=== PATIENT | female | born 1955 | race Caucasian/White ===

== ENCOUNTER 2017-06-22 15:54 | Emergency (ER) | payer BC ==
[~2017-06-22] VITALS: Ht 167.6 cm; Wt 71.1 kg
[~2017-06-22 15:54] MED LIST: BUPR100CR PO; FLUO10CA5 PO; GABA100C4 PO; TRAM50TA PO
[2017-06-22 15:58] VITALS: BP 156/77; PULSE 89; RESP 16; TEMP 97.8; O2SAT 97
[2017-06-22] MEDS ORDERED: guaiFENesin/CODEINE SYRUP 200 MG/20 MG/10 ML CUP PO ONE (16:15)
--- NOTE | 2017-06-22 16:24 | PD ---
HPI Chief Complaint: Headache Time Seen by Provider: 16:04 Travel History International Travel<30 days: No Contact w/Intl Traveler<30days: No Traveled to known affect area: No History of Present Illness HPI 62yo F with no significant PMH presents to the ED with multiple complaints. States her was sick with similar complaints first and then 5 days ago, she started having a cough that is worst at night. Associated with nasal congestion and now pain in her bilateral frontal and maxillary sinus. Also with some ear pain and dryness in her throat. Had fever for last 2 nights and last took acetaminophen 2 hours ago. Denies any chest pain, sob, visual changes, n/v, abdominal pain, focal weakness or numbness. Took flu shot 2 weeks ago. PFSH Past Medical History Hx Anticoagulant Therapy: No Arthritis: Yes Anxiety: Yes Depression: Yes Diabetes: No Diminished Hearing: No Musculoskeletal: Yes (CHRONIC BACK PAIN) ?: Not Menopausal: Yes Tubal Ligation: Yes Past Surgical History Gynecologic Surgery: Yes (TUBAL LIGATION) Other Surgery: Yes (DENTAL SURGERY) Social History Alcohol Use: No Tobacco Use: No Substance Use: No Allergies-Medications (Allergen,Severity, Reaction): Coded Allergies: No Known Allergies (Verified Adverse Reaction, Unknown, 06/22/17) hydromorphone (Unverified Adverse Reaction, Unknown, Hallucinations, 06/22) Reported Meds & Prescriptions Reported Meds & Active Scripts Active Reported Mirapex (Pramipexole Dihydrochloride) 1 Mg Tab 1 Mg PO BID Prozac (Fluoxetine HCl) 40 Mg Cap 60 Mg PO DAILY Wellbutrin SR 12 HR (Bupropion HCl) 100 Mg Tab 300 Mg PO DAILY Review of Systems Except as stated in HPI: all other systems reviewed are Neg Physical Exam Narrative GENERAL: 62yo F in mild distress. SKIN: Focused skin assessment warm/dry. HEAD: Atraumatic. Normocephalic. +TTP bilateral frontal and maxillary sinus. EYES: Pupils equal and round at 3mm bilaterally. EOMI. ENT: Uvula midline. No erythema or exudate. +Bilateral nasal turbinate swelling. TM wnl bilaterally. NECK: Trachea midline. No JVD. No nuchal rigidity. CARDIOVASCULAR: Regular rate and rhythm. No murmur appreciated. RESPIRATORY: No accessory muscle use. Clear to auscultation. Breath sounds equal bilaterally. GASTROINTESTINAL: Abdomen soft, non-tender, nondistended. MUSCULOSKELETAL: No obvious deformities. No clubbing. No cyanosis. No edema. NEUROLOGICAL: Awake and alert. No obvious cranial nerve deficits. Motor grossly within normal limits. Normal speech. PSYCHIATRIC: Appropriate mood and affect; insight and judgment normal. Data Data Last Documented VS Vital Signs Date Time Temp Pulse Resp B/P (MAP) Pulse Ox O2 Delivery O2 Flow Rate FiO2 06/22/17 16:42 18 98 Room Air 06/22/17 15:58 97.8 89 156/77 (103) Orders Orders Influenzae A/B Antigen (06/22/17 16:15) Chest, Single Ap (06/22/17 ) Guaifen-Cod 200-20 Mg/10ml Liq (Robituss (06/22/17 16:15) Group A Rapid Strep Screen (06/22/17 16:24) Ketorolac Inj (Toradol Inj) (06/22/17 16:30) Strep Culture (Group A) (06/22/17 16:30) MDM Medical Decision Making Medical Screen Exam Complete: Yes Emergency Medical Condition: Yes Differential Diagnosis Sinusitis vs. URI vs. pneumonia vs. bronchitis vs. post nasal drip vs. influenza Narrative Course 62yo F with multiple complaints. Group A strep negative. Influenza negative. CXR negative. Pt given toradol IM and robitussin with codeine. Pt reevaluated at bedside and feels better. Headache and cough has improved. Still feels pressure in frontal sinuses. Informed pt that it is most likely viral but will prescribe antibiotics if pain and fever persists. Return precautions given. Diagnosis Primary Impression: Sinusitis Qualified Codes: J01.00 - Acute maxillary sinusitis, unspecified Patient Instructions: General Instructions Departure Forms: Tests/Procedures Additional Instructions: Please take antibiotics only if your symptoms do not improve in 7 days and you are unable to follow up with primary care physician. Return precautions given. Med/Other Pt SpecificInfo: Prescription(s) given Scripts Amoxicillin-Clavulanate (Augmentin) 875-125 Mg Tab 1 TAB PO BID for Infection for 7 Days, #14 TAB 0 Refills Prov: Brook Mary DO 06/22/17 Guaifenesin (Guaifenesin) 200 Mg Tablet 1 TAB PO Q6HR Y for COUGH for 5 Days Prov: MaryBrook jean DO 06/22/17 Disposition: 01 DISCHARGE HOME Condition: Stable Brook Mary DO Jun 22, 2017 16:24
[2017-06-22] MEDS ORDERED: KETOROLAC TROMETHAMINE 60 MG/2 ML (IM) VIAL IM ONE (16:30)
[2017-06-22] MEDS ORDERED: MIRA0.25 PO (16:41)
[2017-06-22] MEDS ORDERED: PRAM1 PO ×2 (16:41)
[2017-06-22] MEDS ORDERED: PROZ40CA PO (16:41)
--- NOTE | 2017-06-22 17:14 | RADRPT ---
EXAM DATE/TIME: 06/22/2017 16:42 [facility] COMPARISON: No previous studies available for comparison. INDICATIONS : Cough and headache MEDICAL HISTORY : None. SURGICAL HISTORY : None. ENCOUNTER: Initial ACUITY: 3 days PAIN SCORE: 6/10 LOCATION: chest FINDINGS: A single view of the chest demonstrates the lungs to be symmetrically aerated without evidence of mas s, infiltrate or effusion. The cardiomediastinal contours are unremarkable. Osseous structures are intact. CONCLUSION: 1. No acute cardiopulmonary disease. David Gregory MD on June 22, 2017 at 17:12 Board Certified Radiologist. This report was verified electronically.
[2017-06-22] MEDS ORDERED: AUGM875T3 PO (17:58)
[2017-06-22] MEDS ORDERED: GUAI200T4 PO (17:58)
[2017-06-22 18:09] VITALS: BP 143/84
== END 2017-06-22 18:11 | disposition home or self-care (01) ==
LOC: PHED 15:54
DX: J01.00 Acute maxillary sinusitis, unspecified (principal); F32.9 Major depressive disorder, single episode, unspecified
CPT/HCPCS: 71010; 87081; 87804; 87880; 96372; 99284; J1885

== ENCOUNTER 2017-08-17 10:22 | Emergency (ER) | payer BC ==
[~2017-08-17] VITALS: Ht 167.6 cm; Wt 71.2 kg
[~2017-08-17 10:22] MED LIST changes: +AUGM875T3 PO; -FLUO10CA5 PO; -GABA100C4 PO; +GUAI200T4 PO; +PRAM1 PO; +PROZ40CA PO; -TRAM50TA PO
[2017-08-17 10:53] VITALS: BP 154/78; PULSE 100; RESP 16; TEMP 99.5; O2SAT 97
[2017-08-17] MEDS ORDERED: methylPREDNISolone SOD SUCC 125 MG/2 ML VIAL IM ONE (11:30)
[2017-08-17] MEDS ORDERED: RESP: ALBUTEROL 2.5 MG/IPRATROPIUM 0.5 MG NEB (SCH) NEB ONE (11:30)
--- NOTE | 2017-08-17 11:36 | PD ---
HPI Chief Complaint: Cold / Flu Symptoms Time Seen by Provider: 11:13 Travel History International Travel<30 days: No Contact w/Intl Traveler<30days: No Traveled to known affect area: No History of Present Illness HPI 62-year-old female presents to emergency department complaining of nonproductive cough, congestion and sinus pain for approximately 3 days. Patient states that she has had increased trouble breathing but denies wheezing or rattling in her chest. States she is also had clear rhinorrhea and fever up to 101 well controlled Tylenol and Motrin. Denies chest pain. Denies chronic medical conditions or chronic medication use. Patient has not been seen for this previously. Patient does not smoke. Says previously, patient was given a breathing treatment and shot and felt much better. PFSH Past Medical History Hx Anticoagulant Therapy: No Arthritis: Yes Anxiety: Yes Depression: Yes Diabetes: No Diminished Hearing: No Gastrointestinal Disorders: Yes ('s esophagus) Musculoskeletal: Yes (CHRONIC BACK PAIN) Immunizations Current: Yes Tetanus Vaccination: < 5 Years ?: Not Menopausal: Yes Tubal Ligation: Yes Past Surgical History Gynecologic Surgery: Yes (TUBAL LIGATION) Other Surgery: Yes (DENTAL SURGERY) Social History Alcohol Use: No Tobacco Use: No Substance Use: No Allergies-Medications (Allergen,Severity, Reaction): Coded Allergies: hydromorphone (Unverified Adverse Reaction, Unknown, Hallucinations, 08/17) Reported Meds & Prescriptions Reported Meds & Active Scripts Active Prednisone 10 Mg Tab 10 Mg PO DAILY 7 Days Tessalon Perles (Benzonatate) 100 Mg Cap 100 Mg PO TID PRN 5 Days Ventolin Hfa 18 GM Inh (Albuterol Sulfate) 90 Mcg/Act Aer 2 Puff INH Q4-6H PRN Reported Prozac (Fluoxetine HCl) 40 Mg Cap 60 Mg PO DAILY Wellbutrin SR 12 HR (Bupropion HCl) 100 Mg Tab 300 Mg PO DAILY Review of Systems Except as stated in HPI: all other systems reviewed are Neg Physical Exam Narrative GENERAL: Well-developed well-nourished in mild distress SKIN: Focused skin assessment warm/dry. HEAD: Atraumatic. Normocephalic. EYES: Pupils equal and round. No scleral icterus. No injection or drainage. ENT: No nasal bleeding or discharge. Mucous membranes pink and moist. Mild pharyngeal injection with postnasal drip. TTP to sinuses maxillary & frontal NECK: Trachea midline. No JVD. No lymphadenopathy CARDIOVASCULAR: Regular rate and rhythm. No murmur appreciated. RESPIRATORY: No accessory muscle use. Expiratory rubs. No wheezes, rales, or rhonchi. MUSCULOSKELETAL: No obvious deformities. No clubbing. No cyanosis. No edema. NEUROLOGICAL: Awake and alert. No obvious cranial nerve deficits. Motor grossly within normal limits. Normal speech. PSYCHIATRIC: Appropriate mood and affect; insight and judgment normal. Data Data Last Documented VS Vital Signs Date Time Temp Pulse Resp B/P (MAP) Pulse Ox O2 Delivery O2 Flow Rate FiO2 08/17/17 11:01 97 Room Air 08/17/17 10:53 99.5 100 16 154/78 (103) Orders Orders Albuterol-Ipratropium Neb (Duoneb Neb) (08/17/17 11:30) Methylprednisolone So Succ Inj (Solumedr (08/17/17 11:30) Chest, Single Ap (08/17/17 ) Ed Discharge Order (08/17/17 12:47) [facility] Medical Decision Making Medical Screen Exam Complete: Yes Emergency Medical Condition: Yes Differential Diagnosis Viral sinusitis, upper respiratory infection, bronchitis Narrative Course 62-year-old female presents to emergency department complaining of nonproductive cough, congestion and sinus pain for approximately 3 days. Patient states that she has had increased trouble breathing but denies wheezing or rattling in her chest. States she is also had clear rhinorrhea and fever up to 101 well controlled Tylenol and Motrin. Denies chest pain. Denies chronic medical conditions or chronic medication use. Patient has not been seen for this previously. Patient does not smoke. Says previously, patient was given a breathing treatment and shot and felt much better. Vital signs stable DuoNeb, chest x-ray, and Solu-Medrol ordered. Patient presents with symptoms of viral etiology. Patient feels much better after the DuoNeb and Solu-Medrol. She will be discharged with prednisone, Tessalon Perles, and albuterol inhalers. Advised that she may take Tylenol or Motrin per package instructions for the sinus pain. May also take Claritin, Vidhya, or Zyrtec for possible allergy component to her sinuses. [place] nasal spray. Advised to f/u with PCP and return to the ED for worsening or persistent symptoms. Diagnosis Primary Impression: Bronchitis Referrals: Primary Care Physician Additional Instructions: Follow up with your primary care physician within 2-3 days. If your symptoms persist or worsen, return to the emergency department. Scripts Prednisone (Prednisone) 10 Mg Tab 10 MG PO DAILY for 7 Days, #7 TAB 0 Refills Prov: Dominga Lozano 08/17/17 Benzonatate (Tessalon Perles) 100 Mg Cap 100 MG PO TID Y for COUGH for 5 Days, CAP 0 Refills Prov: Dominga Lozano 08/17/17 Albuterol 18 GM Inh (Ventolin Hfa 18 GM Inh) 90 Mcg/Act Aer 2 PUFF INH Q4-6H Y for SHORTNESS OF BREATH, #1 INHALER 0 Refills Prov: Dominga Lozano 08/17/17 Disposition: 01 DISCHARGE HOME Condition: Stable Dominga Lozano Aug 17, 2017 11:36
--- NOTE | 2017-08-17 12:31 | RADRPT ---
EXAM DATE/TIME: 08/17/2017 11:39 [facility] COMPARISON: CHEST SINGLE AP, June 22, 2017, 16:42. INDICATIONS : Cough and fever for 3 days. MEDICAL HISTORY : None. SURGICAL HISTORY : None. ENCOUNTER: Initial ACUITY: 3 days PAIN SCORE: 7/10 LOCATION: all over FINDINGS: A single view of the chest demonstrates the lungs to be symmetrically aerated without evidence of mas s, infiltrate or effusion. The cardiomediastinal contours are unremarkable. Osseous structures are intact. CONCLUSION: Normal examination for a patient of this age. No significant change has occurred. Lon Arango MD on August 17, 2017 at 12:29 Board Certified Radiologist. This report was verified electronically.
[2017-08-17] MEDS ORDERED: BENZ100 PO (12:47)
[2017-08-17] MEDS ORDERED: VENTAER INH (12:47)
[2017-08-17] MEDS ORDERED: PRED10 PO (12:47)
== END 2017-08-17 12:52 | disposition home or self-care (01) ==
LOC: PHEFT 10:22
DX: J40 Bronchitis, not specified as acute or chronic (principal); M19.90 Unspecified osteoarthritis, unspecified site; F41.9 Anxiety disorder, unspecified; F32.9 Major depressive disorder, single episode, unspecified; K22.70 Barrett's esophagus without dysplasia; Z79.899 Other long term (current) drug therapy; Z88.5 Allergy status to narcotic agent
CPT/HCPCS: 71010; 94664; 96372; 99284; J2930

== ENCOUNTER 2017-11-05 13:18 | Emergency (ER) | payer BC ==
[~2017-11-05] VITALS: Ht 162.6 cm; Wt 72.8 kg
[~2017-11-05 13:18] MED LIST changes: -AUGM875T3 PO; +BENZ100 PO; -GUAI200T4 PO; -PRAM1 PO; +PRED10 PO; +VENTAER INH
[2017-11-05 13:22] VITALS: BP 143/89; PULSE 94; RESP 18; TEMP 97.8; O2SAT 96
--- NOTE | 2017-11-05 13:33 | PD ---
HPI Chief Complaint: Skin Problem Time Seen by Provider: 13:31 Travel History International Travel<30 days: No Contact w/Intl Traveler<30days: No Traveled to known affect area: No History of Present Illness HPI 62-year-old female presents to emergency department for evaluation of a painful blister-like lesion on the dorsal aspect of her left great toe. Patient states it started about a week ago. It seems that the blister changes in size after she soaks in Epsom salts. The redness has increased. She denies any injury. No fever or chills. No other symptoms to report. PFSH Past Medical History Hx Anticoagulant Therapy: No Arthritis: Yes Anxiety: Yes Depression: Yes Diabetes: No Diminished Hearing: No Gastrointestinal Disorders: Yes ('s esophagus) Musculoskeletal: Yes (CHRONIC BACK PAIN) Immunizations Current: Yes Tetanus Vaccination: < 5 Years Influenza Vaccination: Yes ?: Not Menopausal: Yes Tubal Ligation: Yes Past Surgical History Gynecologic Surgery: Yes (TUBAL LIGATION) Other Surgery: Yes (DENTAL SURGERY) Social History Alcohol Use: No Tobacco Use: No Substance Use: No Allergies-Medications (Allergen,Severity, Reaction): Coded Allergies: hydromorphone (Unverified Adverse Reaction, Unknown, Hallucinations, ) Reported Meds & Prescriptions Reported Meds & Active Scripts Active Bactrim DS (Sulfamethoxazole-Trimethoprim) 800-160 Mg Tab 1 Tab PO BID Keflex (Cephalexin) 500 Mg Cap 500 Mg PO Q6H 5 Days Reported Prozac (Fluoxetine HCl) 40 Mg Cap 30 Mg PO DAILY Wellbutrin SR 12 HR (Bupropion HCl) 100 Mg Tab 300 Mg PO DAILY Review of Systems Except as stated in HPI: all other systems reviewed are Neg Physical Exam Narrative GENERAL: Well-nourished, well-developed female pt; in no acute distress SKIN: Focused skin assessment warm/dry. 2 cm in diameter reddened area on the dorsal aspect of left great toe to the nail. HEAD: Normocephalic. EYES: No scleral icterus. No injection or drainage. NECK: Supple, trachea midline. No JVD or lymphadenopathy. CARDIOVASCULAR: Regular rate and rhythm without murmurs, gallops, or rubs. RESPIRATORY: Breath sounds equal bilaterally. No accessory muscle use. MUSCULOSKELETAL: No cyanosis, or edema. Data Data Last Documented VS Vital Signs Date Time Temp Pulse Resp B/P (MAP) Pulse Ox O2 Delivery O2 Flow Rate FiO2 11/05/17 13:22 97.8 94 18 143/89 (107) 96 Orders Orders Ed Discharge Order (11/05/17 13:35) MDM Medical Decision Making Medical Screen Exam Complete: Yes Emergency Medical Condition: Yes Medical Record Reviewed: Yes Differential Diagnosis Cellulitis versus abscess versus impetigo versus blister Narrative Course 8-year-old female presents to emergency department for evaluation of a sore on her left great toe. Physical exam is more consistent evidence of impetigo with associated cellulitis. Patient was started on oral antibiotics. She is encouraged to follow-up with primary care provider and return immediately with any acute worsening symptoms. Diagnosis Primary Impression: Infection of toe Referrals: [employer] Primary Care Physician Patient Instructions: General Instructions, Impetigo (ED) Additional Instructions: Keep the area clean and dry Follow-up with a primary care provider Seek podiatry evaluation of symptoms persist Return immediately with any acute worsening of symptoms Med/Other Pt SpecificInfo: Prescription(s) given Scripts Sulfamethoxazole-Trimethoprim (Bactrim DS) 800-160 Mg Tab 1 TAB PO BID for Infection, #20 TAB 0 Refills Prov: Cherelle Lei 11/05/17 Cephalexin (Keflex) 500 Mg Cap 500 MG PO Q6H for Infection for 5 Days, #20 CAP 0 Refills Prov: Cherelle Lei 11/05/17 Disposition: 01 DISCHARGE HOME Condition: Stable Cherelle Lei Nov 05, 2017 13:33
[2017-11-05] MEDS ORDERED: CEPH-460 PO (13:37)
[2017-11-05] MEDS ORDERED: BACT800T5 PO (13:37)
== END 2017-11-05 13:57 | disposition home or self-care (01) ==
LOC: PHEFT 13:18
DX: L08.9 Local infection of the skin and subcutaneous tissue, unspecified (principal); F41.8 Other specified anxiety disorders; Z87.39 Personal history of other diseases of the musculoskeletal system and connective tissue; Z87.19 Personal history of other diseases of the digestive system
CPT/HCPCS: 99283